=== PATIENT | female | born 1950 | race Caucasian/White ===

== ENCOUNTER → 2017-02-12 | Outpatient (CLI) | payer BC, MEDICARE | LOC: LAB 13:44 | DX: R20.2 Paresthesia of skin (principal); K90.89 Other intestinal malabsorption; I10 Essential (primary) hypertension; E04.1 Nontoxic single thyroid nodule ==

== ENCOUNTER → 2017-02-24 | Outpatient (CLI) | payer BC, MEDICARE | LOC: RAD 10:54 | DX: E04.1 Nontoxic single thyroid nodule (principal); R06.02 Shortness of breath; J98.4 Other disorders of lung ==

== ENCOUNTER → 2018-02-09 | Outpatient (CLI) | payer BC, MEDICARE ==
[2018-02-09 14:41] LABS: ALBUMIN 4.2 g/dL (3.5-5.0); BUN/CREATININE RATIO 20.2 (6.0-26.0); CALCIUM 9.6 mg/dL (8.4-10.2); POTASSIUM 3.6 mmol/L (3.6-5.0); TOTAL BILIRUBIN 0.4 mg/dL (0.2-1.3); TOTAL PROTEIN 7.7 g/dL (6.3-8.2)
== END ==
LOC: LAB 13:51
PROVIDERS: Internal Medicine
DX: I10 Essential (primary) hypertension (principal); K90.89 Other intestinal malabsorption; E04.2 Nontoxic multinodular goiter

== ENCOUNTER → 2018-04-21 | Outpatient (CLI) | payer BC, MEDICARE | LOC: RAD 12:45 | DX: E04.2 Nontoxic multinodular goiter (principal); R06.02 Shortness of breath; J98.4 Other disorders of lung ==